=== PATIENT | male | born 1960 | race Caucasian/White ===

== ENCOUNTER 2017-01-01 13:41 | Emergency (ER) | payer OTHER ==
[2017-01-01 13:54] VITALS: BP 151/90
--- NOTE | 2017-01-06 11:17 | ED ---
Hypertension - HPI Summary HPI Summary: 57 year old male presents with severe headaches and elevated blood pressure. On a side note he was recently placed on lisinopril and unsure of his blood work results. - History of Current Complaint Chief Complaint: UCHeadache Stated Complaint: HEADACHE BP UP Hx Obtained From: Patient Timing: Constant Aggravating Factor(s): Exertion Alleviating Factor(s): Rest - Allergies/Home Medications Allergies/Adverse Reactions: Allergies Allergy/AdvReac Type Severity Reaction Status Date / Time Penicillins Allergy Severe Anaphylatic Verified 01/01/17 13:54 Shock Ciprofloxacin [From Cipro] Allergy Hives/Diff. Verified 01/01/17 13:55 Breathing/I tching Home Medications: Home Medications Lisinopril TAB* [Prinivil TAB*] 5 mg PO DAILY 01/01/17 [History Confirmed ] PMH/Surg Hx/FS Hx/Imm Hx Endocrine/Hematology History: Denies: Hx Diabetes Cardiovascular History: Reports: Hx Hypertension Denies: Hx Pacemaker/ICD Sensory History: Denies: Hx Hearing Aid Psychiatric History: Denies: Hx Panic Disorder - Surgical History Surgery Procedure, Year, and Place: 1988 hemorrhoidectomy Infectious Disease History: No Infectious Disease History: Reports: Hx Shingles - 2012 Denies: Traveled Outside the [place] in Last 30 Days - Family History Known Family History: Positive: None - Social History Alcohol Use: Weekly Substance Use Type: Reports: None Smoking Status (MU): Never Smoked Tobacco Review of Systems Positive: Fatigue Eyes: Negative ENT: Negative Cardiovascular: Negative Gastrointestinal: Negative Genitourinary: Negative Musculoskeletal: Negative Skin: Negative Positive: Headache All Other Systems Reviewed And Are Negative: Yes Physical Exam Triage Information Reviewed: Yes Vital Signs On Initial Exam: Initial Vitals Pulse Resp BP Pulse Ox 69 16 151/90 100 01/01/17 13:48 01/01/17 13:48 01/01/17 13:48 01/01/17 13:48 Vital Signs Reviewed: Yes Appearance: Positive: Ill-Appearing Skin: Positive: Warm Head/Face: Positive: Normal Head/Face Inspection Eyes: Positive: Normal ENT: Positive: Normal ENT inspection Cardiovascular: Positive: Normal Musculoskeletal: Positive: Normal Neurological: Positive: Normal Diagnostics - Vital Signs Vital Signs Pulse Resp BP Pulse Ox 01/01/17 13:48 69 16 151/90 100 - Laboratory Lab Statement: Any lab studies that have been ordered have been reviewed, and results considered in the medical decision making process. Hypertension Course/Dx - Diagnoses Provider Diagnoses: Hypertension Discharge - Discharge Plan Condition: Stable Disposition: OTHER Discharge Disposition Comment: patient advised to go to the er for headache asscoaued with hypertension Patient Education Materials: Hypertension (ED) Referrals: Saran Ya MD [Primary Care Provider] - Additional Instructions: PATIENT SUGGESTED TO GO THE ER FOR HYPERTENSION AND SEVERE HEADACHES.
== END 2017-01-01 15:13 | disposition home or self-care (01) ==
LOC: UCEAST 13:41
DX: I10 Essential (primary) hypertension (principal); R51 Headache; R53.83 Other fatigue; Z88.1 Allergy status to other antibiotic agents; Z88.0 Allergy status to penicillin
CPT/HCPCS: 99211; G0463

== ENCOUNTER 2017-01-01 15:30 | Emergency (ER) | payer OTHER ==
[2017-01-01] MEDS ORDERED: hydrALAZINE IV* 20 MG/ML VIAL IV SLOW PU ONE (16:01)
--- NOTE | 2017-01-01 16:38 | RAD ---
INDICATION: Hypertension. COMPARISON: There are no prior studies available for comparison. TECHNIQUE: Dual-energy PA and lateral views of the chest were obtained. FINDINGS: The heart is within normal limits in size. Mediastinal and hilar contours appear within normal limits. The lungs are clear. No pleural effusion is present. IMPRESSION: NO EVIDENCE FOR ACTIVE CARDIOPULMONARY DISEASE.
--- NOTE | 2017-01-01 16:40 | RAD ---
INDICATION: Headache. COMPARISON: There are no prior studies available for comparison. TECHNIQUE: Contiguous axial sections of the brain were obtained from the skull base to the vertex without contrast. FINDINGS: The ventricles, cisterns and sulci are enlarged consistent with diffuse atrophy. No significant focal abnormality or mass effect is seen. There is no evidence for hemorrhage. No significant focal osseous abnormality is seen. The visualized portion of the paranasal sinuses and mastoid air cells appear clear. IMPRESSION: NO EVIDENCE FOR ACUTE INTRACRANIAL ABNORMALITY.
[2017-01-01 17:08] LABS: Hematocrit 42 % (42-52); Hemoglobin 14.2 g/dl (14.0-18.0); Mean Corpuscular HGB Conc 34 g/dl (31-36); Mean Corpuscular Hemoglobin 29 pg (27-31); Mean Corpuscular Volume 86 fL (80-94); Mean Platelet Volume 8 um3 (7.4-10.4); Red Blood Count 4.88 10^6/ul (4.0-5.4); Red Cell Distribution Width 13 % (10.5-15); White Blood Count 7.4 10^3/ul (3.5-10.8)
[2017-01-01 17:23] LABS: Albumin 4.2 g/dL (3.2-5.2); BUN/Creatinine Ratio 18.3 (8-20); Calcium 9.3 mg/dL (8.6-10.3); EGFR African American 84.9 (>60); Globulin 2.8 g/dL (2-4); Potassium 4.1 mmol/L (3.5-5.0); Total Bilirubin 0.4 mg/dL (0.2-1.0)
--- NOTE | 2017-01-01 18:27 | ED ---
Mariya Cyr Emily, scribed for Aamir Blanc MD on 01/01/17 at 1553 . Hypertension - HPI Summary HPI Summary: This patient is a 56 year old M presenting to [facility] referred by urgent care for further evaluation of HTN. The patient rates the pain 0/10 in severity. Symptoms aggravated by nothing. Patient reports bilateral temporal headaches ( alleviated by Motrin). Patient denies SOB and photophobia. Pt starting getting exertional headaches about 4 weeks ago. Pt treated for HTN. FHx HTN and diabetes. - History of Current Complaint Chief Complaint: EDHypertension Stated Complaint: HIGH BLOOD PRESSURE AND HEADACHE Time Seen by Provider: 01/01/17 15:41 Hx Obtained From: Patient Onset/Duration: Started Weeks Ago, Still Present Timing: Constant Aggravating Factor(s): Nothing Associated Signs & Symptoms: Headaches - Risk Factors Cardiac Risk Factors: Family History - Allergies/Home Medications Allergies/Adverse Reactions: Allergies Allergy/AdvReac Type Severity Reaction Status Date / Time Penicillins Allergy Severe Anaphylatic Verified 01/01/17 13:54 Shock Ciprofloxacin [From Cipro] Allergy Hives/Diff. Verified 01/01/17 13:55 Breathing/I tching PMH/Surg Hx/FS Hx/Imm Hx Previously Healthy: No Endocrine/Hematology History: Denies: Hx Diabetes Cardiovascular History: Reports: Hx Hypertension Denies: Hx Pacemaker/ICD Sensory History: Denies: Hx Hearing Aid Psychiatric History: Denies: Hx Panic Disorder - Surgical History Surgery Procedure, Year, and Place: 1988 hemorrhoidectomy Infectious Disease History: No Infectious Disease History: Reports: Hx Shingles - 2012 Denies: Traveled Outside the [place] in Last 30 Days - Family History Known Family History: Positive: Hypertension, Diabetes - Social History Lives: With Family Alcohol Use: Weekly Substance Use Type: Reports: None Smoking Status (MU): Never Smoked Tobacco Review of Systems Negative: Photophobia Positive: Other - Positive HTN Negative: Shortness Of Breath Positive: Headache All Other Systems Reviewed And Are Negative: Yes Physical Exam - Summary Physical Exam Summary: VITAL SIGNS: Reviewed. GENERAL: ~Patient is a well-developed and nourished male who is lying comfortable in the stretcher. ~Patient is not in any acute respiratory distress. HEAD AND FACE: No signs of trauma. ~No ecchymosis, hematomas or skull depressions. No sinus tenderness. EYES: PERRLA, EOMI x 2, No injected conjunctiva, no nystagmus. EARS: Hearing grossly intact. Ear canals and tympanic membranes are within normal limits. MOUTH: Oropharynx within normal limits. NECK: Supple, trachea is midline, no adenopathy, no JVD, no carotid bruit, no c- spine tenderness, neck with full ROM. CHEST: Symmetric, no tenderness at palpation LUNGS: Clear to auscultation bilaterally. No wheezing or crackles. CVS: Regular rate and rhythm, S1 and S2 present, no murmurs or gallops appreciated. ABDOMEN: Soft, non-tender. No signs of distention. No rebound no guarding, and no masses palpated. Bowel sounds are normal. EXTREMITIES: FROM in all major joints, no edema, no cyanosis or clubbing. NEURO: Alert and oriented x 3. No acute neurological deficits. Speech is normal and follows commands. Psych: Anxious SKIN: Dry and warm Triage Information Reviewed: Yes Vital Signs On Initial Exam: Initial Vitals Temp Pulse Resp BP Pulse Ox 98.5 F 64 20 156/103 100 01/01/17 15:32 01/01/17 15:32 01/01/17 15:32 01/01/17 15:32 01/01/17 15:32 Vital Signs Reviewed: Yes Diagnostics - Vital Signs Vital Signs Temp Pulse Resp BP Pulse Ox 01/01/17 15:32 98.5 F 64 20 156/103 100 - Laboratory Lab Results: Lab Results 01/01/17 01/01/17 Range/Units 16:40 16:40 WBC 7.4 (3.5-10.8) 10^3/ul RBC 4.88 (4.0-5.4) 10^6/ul Hgb 14.2 (14.0-18.0) g/dl Hct 42 (42-52) % MCV 86 (80-94) fL MCH 29 (27-31) pg MCHC 34 (31-36) g/dl RDW 13 (10.5-15) % Plt Count 247 (150-450) 10^3/ul MPV 8 (7.4-10.4) um3 Neut % (Auto) 68.5 (38-83) % Lymph % (Auto) 19.7 L (25-47) % Whitman % (Auto) 8.9 (1-9) % Eos % (Auto) 1.8 (0-6) % Baso % (Auto) 1.1 (0-2) % Absolute Neuts (auto) 5.0 (1.5-7.7) 10^3/ul Absolute Lymphs (auto) 1.4 (1.0-4.8) 10^3/ul Absolute Monos (auto) 0.7 (0-0.8) 10^3/ul Absolute Eos (auto) 0.1 (0-0.6) 10^3/ul Absolute Basos (auto) 0.1 (0-0.2) 10^3/ul Absolute Nucleated RBC 0.01 10^3/ul Nucleated RBC % 0.1 Sodium 136 (133-145) mmol/L Potassium 4.1 (3.5-5.0) mmol/L Chloride 102 (101-111) mmol/L Carbon Dioxide 29 (22-32) mmol/L Anion Gap 5 (2-11) mmol/L BUN 21 (6-24) mg/dL Creatinine 1.15 (0.67-1.17) mg/dL Est GFR ( Amer) 84.9 (>60) Est GFR (Non-Af Amer) 66.0 (>60) BUN/Creatinine Ratio 18.3 (8-20) Glucose 92 (70-100) mg/dL Calcium 9.3 (8.6-10.3) mg/dL Total Bilirubin 0.40 (0.2-1.0) mg/dL AST 24 (13-39) U/L ALT 20 (7-52) U/L Alkaline Phosphatase 59 (34-104) U/L Troponin I 0.00 (<0.04) ng/mL Total Protein 7.0 (6.4-8.9) g/dL Albumin 4.2 (3.2-5.2) g/dL Globulin 2.8 (2-4) g/dL Albumin/Globulin Ratio 1.5 (1-3) Result Diagrams: 01/01/17 16:40 01/01/17 16:40 Lab Statement: Any lab studies that have been ordered have been reviewed, and results considered in the medical decision making process. - Radiology CXR Radiology Interpretation Completed By: Radiologist - CXR reveals no evidence for active cardiopulmonary disease. ED physician has reviewed this radiology report and agrees. - CT Brain CT Interpretation Completed By: Radiologist - A brain CT read by radiologist reveals no evidence for acute intracranial abnormality. ED physician has reviewed this radiology report and agrees. - EKG 1630 Cardiac Rate: NL - 63 BPM EKG Rhythm: Sinus Rhythm EKG Interpretation: No ST elevations Hypertension Course/Dx - Course Assessment/Plan: This patient is a 56 year old M presenting to [facility] referred by urgent care for further evaluation of HTN. The patient rates the pain 0/10 in severity. Symptoms aggravated by nothing. Patient reports bilateral temporal headaches (alleviated by Motrin). Patient denies SOB and photophobia. Pt starting getting exertional headaches about 4 weeks ago. Pt treated for HTN. FHx HTN and diabetes. In the ED course an IV access was obtained. Patient was placed in a monitoring specialist. Patient was started with IV fluids. Labs without any significant abnormality. Troponin #1: 0.00. EKG shows a NSR at w/o ST elevations. CXR impression: No acute pathology. Head CT IMPRESSION: NO EVIDENCE FOR ACUTE INTRACRANIAL ABNORMALITY. In the ED course he was given Hydralazine and his BP is: 126/76. Patient requested prescription for Klonopin for anxiety. He has no other complaints therefore he will be discharged home with f/u of his PCP. I discussed all the findings and test results with the patient. Patient was instructed to return to the emergency room immediately if any of the symptoms return or worsens. Plan of care was discussed with the patient and understands and agrees. All questions were answered at patient satisfaction. There were no further complaints or concerns. Lung exam before discharge: CTA B/L. Good air exchange. No wheezing or crackles heard. CVS: S1 and S2 present. No murmurs appreciated. Patient is alert and oriented x 3. Patient is hemodynamically stable. Patient will be discharged home with follow up PCP in the next 2-3 days - Diagnoses Differential Diagnosis/HQI PQRI: Cerebral Bleed, Hypertension, Hypertensive Crisis, Hypertensive Urgency Provider Diagnoses: Uncontrolled hypertension, Anxiety Discharge - Discharge Plan Condition: Stable Disposition: HOME Prescriptions: clonazePAM TAB(*) [KlonoPIN TAB(*)] 0.5 mg PO BID PRN #6 tab MDD 2 PRN Reason: Anxiety Patient Education Materials: Hypertension (ED), Anxiety (ED) Referrals: Darlow,Saran A, MD [Primary Care Provider] - Additional Instructions: RETURN TO THE EMERGENCY DEPARTMENT FOR CHANGING OR WORSENING SYMPTOMS. The documentation as recorded by the Mariya dyer Emily accurately reflects the service I personally performed and the decisions made by me, Aamir Blanc MD.
[2017-01-01 18:43] VITALS: BP 137/76
== END 2017-01-01 18:43 | disposition home or self-care (01) ==
LOC: ED 15:30
DX: I10 Essential (primary) hypertension (principal); F41.9 Anxiety disorder, unspecified; R51 Headache; Z88.1 Allergy status to other antibiotic agents; Z88.0 Allergy status to penicillin
CPT/HCPCS: 36415; 70450; 71020; 80053; 84484; 85025; 93005; 96374; 99282; J0360